=== PATIENT | male | born 1995 | race Caucasian/White ===

== ENCOUNTER 2018-03-12 00:49 | Emergency (ER) | payer BC, OTHER ==
[~2018-03-12] VITALS: Ht 175.3 cm; Wt 65.8 kg
[2018-03-12] MEDS ORDERED: CEPH500 PO (01:06)
== END 2018-03-12 01:20 | disposition home or self-care (01) ==
LOC: ER 00:49
DX: S60.512A Abrasion of left hand, initial encounter (principal); S60.511A Abrasion of right hand, initial encounter; L03.113 Cellulitis of right upper limb; V00.131A Fall from skateboard, initial encounter
CPT/HCPCS: 99283